=== PATIENT | female | born 2000 | race Caucasian/White ===

== ENCOUNTER → 2021-07-31 | Outpatient (CLI) | payer BC, OTHER | LOC: COL.RAD 09:39 | DX: S63.592A Other specified sprain of left wrist, initial encounter (principal); X58.XXXA Exposure to other specified factors, initial encounter | CPT/HCPCS: A9585; Q9967 ==

== ENCOUNTER 2022-07-05 09:27 | Outpatient (RCR) | payer OTHER | END 2022-07-09 | disposition home or self-care (01) | LOC: WSST | DX: J38.2 Nodules of vocal cords (principal) ==

== ENCOUNTER 2022-07-19 09:30 | Outpatient (RCR) | payer OTHER | END 2022-08-08 | disposition home or self-care (01) | LOC: WSST | DX: J38.2 Nodules of vocal cords (principal) ==

== ENCOUNTER 2022-08-18 08:01 | Outpatient (RCR) | payer OTHER | END 2022-09-08 | disposition home or self-care (01) | LOC: WSST | DX: J38.2 Nodules of vocal cords (principal) ==